=== PATIENT | male | born 1970 | race Caucasian/White ===

== ENCOUNTER 2023-03-19 13:59 | Emergency (ER) | payer OTHER ==
[~2023-03-19] VITALS: Ht 177.8 cm; Wt 83.9 kg
[2023-03-19 14:52] VITALS: BP 136/83
[2023-03-19] MEDS ORDERED: ACET-66 PO (14:55)
[2023-03-19] MEDS ORDERED: IBUP-2070 PO (14:55)
== END 2023-03-19 14:58 | disposition home or self-care (01) ==
LOC: EDH 13:59
DX: S91.114A Laceration without foreign body of right lesser toe(s) without damage to nail, initial encounter (principal); X58.XXXA Exposure to other specified factors, initial encounter; Y93.89 Activity, other specified; Y92.89 Other specified places as the place of occurrence of the external cause; Y99.8 Other external cause status
CPT/HCPCS: 12001